=== PATIENT | female | born 2000 | race Caucasian/White ===

== ENCOUNTER 2022-02-16 11:22 | Emergency (ER) | payer SELFPAY ==
[~2022-02-16] VITALS: Ht 152.4 cm; Wt 72.6 kg
[2022-02-16] MEDS ORDERED: [UNRECOGNIZED DRUG - CODE] PO (11:38)
[2022-02-16] MEDS ORDERED: ESCI10 PO (11:38)
[2022-02-16] MEDS ORDERED: AMOCLA875 PO (13:58)
[2022-02-16] MEDS ORDERED: OXYC5 PO (13:58)
== END 2022-02-16 14:06 | disposition home or self-care (01) ==
LOC: ER 11:22
DX: S02.40DA Maxillary fracture, left side, initial encounter for closed fracture (principal); S01.512A Laceration without foreign body of oral cavity, initial encounter; S80.01XA Contusion of right knee, initial encounter; W11.XXXA Fall on and from ladder, initial encounter
CPT/HCPCS: 36415; 70450; 70486; 96374; 96375; 99284-25; J1170; J2405

== ENCOUNTER → 2024-01-29 | Outpatient (CLI) | payer OTHER ==
[~2024-01-29] MED LIST: AMOCLA875 PO; ESCI10 PO; OXYC5 PO; [UNRECOGNIZED DRUG - CODE] PO
== END ==
LOC: LAB SHORT 10:24 → LAB 10:24
PROVIDERS: Family Medicine
DX: Z01.419 Encounter for gynecological examination (general) (routine) without abnormal findings (principal)
CPT/HCPCS: G0123

== ENCOUNTER → 2025-04-01 | Outpatient (CLI) | payer OTHER ==
[2025-04-02 08:47] LABS: Source, Urine Clean Catch
[2025-04-02 13:46] LABS: Bilirubin, Urine Neg (Neg); Color, Urine Yellow (P-Yellow); Glucose Qualitative, Urine Neg (Neg); Ketones, Urine Neg (Neg); Leukocyte Esterase, Urine 3+ (Neg); Protein, Urine 1+ (Neg); Specific Gravity, Urine 1.025 (1.003-1.022); Urobilinogen, Urine NORM (Normal)
== END ==
LOC: LAB SHORT 17:45 → LAB 17:45
PROVIDERS: Family Medicine
DX: R82.90 Unspecified abnormal findings in urine (principal)
CPT/HCPCS: 81001; 87077; 87086; 87186

== ENCOUNTER → 2025-05-05 | Outpatient (CLI) | payer OTHER ==
[2025-05-05 15:08] LABS: Bacterial Vaginosis PCR Negative (NEGATIVE); Candida glabrata-krusei, PCR NOT DETECTED (NOT DETECT)
[2025-05-05 20:07] LABS: Candida Group, PCR DETECTED (NOT DETECT)
== END ==
LOC: LAB SHORT 13:03 → LAB 13:03
PROVIDERS: Family Medicine
DX: N89.8 Other specified noninflammatory disorders of vagina (principal); R82.90 Unspecified abnormal findings in urine
CPT/HCPCS: 81515; 87077; 87086; 87186